=== PATIENT | female | born 1965 | race Caucasian/White ===

== ENCOUNTER 2022-02-08 13:02 | Emergency (ER) | payer SELFPAY ==
[2022-02-08] MEDS ORDERED: Morphine 4 MG/ML Syringe IVPUSH ONE (13:39)
[2022-02-08] MEDS ORDERED: Sodium Chloride 0.9% 10 ML Syringe FLUSH PRN (13:39)
[2022-02-08] MEDS ORDERED: Aspirin 81 MG Tab.Chew PO ONE (13:39)
[2022-02-08 14:13] LABS: ESTIMATED GFR 86 mL/min (>60)
[2022-02-08] MEDS ORDERED: Morphine 4 MG/ML Syringe IM ONE (14:32)
== END 2022-02-08 17:43 | disposition home or self-care (01) ==
LOC: JD.ED 13:02
DX: R07.89 Other chest pain (principal); R51.9 Headache, unspecified; Z88.0 Allergy status to penicillin
CPT/HCPCS: 36415; 70450; 71045; 80053; 84484; 85025; 85379; 93005; 96372; 99285; A9270; J2270; J3490

== ENCOUNTER 2023-01-23 09:25 | Day surgery (SDC) | payer BC ==
[~2023-01-23 09:25] MED LIST: Lactated Ringers 1,000 ML IV SCH; Sodium Chloride 0.9% 10 ML Syringe FLUSH PRN; Sodium Chloride 0.9% 10 ML Syringe FLUSH SCH
[2023-01-23] MEDS ORDERED: fentaNYL 100 MCG/2 ML SDV ONE (11:00)
[2023-01-23] MEDS ORDERED: Propofol 200 MG/20 ML SDV ONE (11:00)
[2023-01-23] MEDS ORDERED: Lidocaine 1% 6 ML ONE (11:00)
== END 2023-01-23 13:00 | disposition home or self-care (01) ==
LOC: JD.SDS 09:25
PROVIDERS: ATTEND Surgery
DX: Z12.11 Encounter for screening for malignant neoplasm of colon (principal); K29.50 Unspecified chronic gastritis without bleeding; D12.4 Benign neoplasm of descending colon; B96.81 Helicobacter pylori [H. pylori] as the cause of diseases classified elsewhere; K57.30 Diverticulosis of large intestine without perforation or abscess without bleeding; K64.8 Other hemorrhoids; I25.10 Atherosclerotic heart disease of native coronary artery without angina pectoris; F32.A Depression, unspecified; M79.7 Fibromyalgia; I10 Essential (primary) hypertension; E11.9 Type 2 diabetes mellitus without complications; G44.229 Chronic tension-type headache, not intractable; E78.00 Pure hypercholesterolemia, unspecified; M79.643 Pain in unspecified hand; M06.9 Rheumatoid arthritis, unspecified; K21.00 Gastro-esophageal reflux disease with esophagitis, without bleeding; Z88.0 Allergy status to penicillin; Z79.899 Other long term (current) drug therapy
CPT/HCPCS: 43239; 45385; J2704; J3010; J7120; 00813; J3490

== ENCOUNTER 2023-07-20 10:25 | Emergency (ER) | payer BC | END 2023-07-20 11:55 | disposition home or self-care (01) | LOC: JD.ED 10:25 | DX: M25.561 Pain in right knee (principal); I10 Essential (primary) hypertension; E78.00 Pure hypercholesterolemia, unspecified; E11.9 Type 2 diabetes mellitus without complications; I25.10 Atherosclerotic heart disease of native coronary artery without angina pectoris; K21.9 Gastro-esophageal reflux disease without esophagitis; Z88.0 Allergy status to penicillin; Z79.899 Other long term (current) drug therapy | CPT/HCPCS: 73562-26-RT; 73562-RT; 99283 ==

== ENCOUNTER 2023-09-26 13:26 | Emergency (ER) | payer BC ==
[2023-09-26] MEDS ORDERED: Nitroglycerin 0.4 MG Tab.SL SL PRN (14:11)
[2023-09-26] MEDS: Aspirin 81 MG Tab.Chew PO ONE (14:20)
[2023-09-26 15:07] LABS: BASOPHILS PERCENT AUTO 0.3 % (0.0-1.0); EOSINOPHILS ABSOLUTE AUTO 0.2 K/mm3 (0.0-0.4); EOSINOPHILS PERCENT AUTO 1.4 % (0.0-6.0); HEMATOCRIT 44.6 % (37.0-47.0); HEMOGLOBIN 15.1 gm/dl (12.0-16.0); IMMATURE GRAN ABSOLUTE AUTO 0.11 K/mm3 (0.00-0.05); IMMATURE GRAN PERCENT AUTO 1.1 % (0.0-0.4); LYMPHOCYTES ABSOLUTE AUTO 2.9 K/mm3 (1.0-4.8); LYMPHOCYTES PERCENT AUTO 27.7 % (24.0-44.0); MEAN CORPUSCULAR HEMOGLOBIN 29.7 pg (28.0-32.0); MEAN CORPUSCULAR HGB CONC 33.9 g/dl (32.0-36.0); MEAN CORPUSCULAR VOLUME 87.8 fl (83.0-99.0); MEAN PLATELET VOLUME 10.1 fl (9.4-12.3); MONOCYTES ABSOLUTE AUTO 0.7 K/mm3 (0.0-0.8); MONOCYTES PERCENT AUTO 6.9 % (0.0-8.0); NEUTROPHILS ABSOLUTE AUTO 6.5 K/mm3 (1.8-7.7); NEUTROPHILS PERCENT AUTO 62.6 % (41.0-71.0); PLATELET COUNT,PLT 196 K/mm3 (150-400); RED BLOOD CELL COUNT 5.08 M/mm3 (4.10-5.30); WHITE BLOOD CELL COUNT,WBC 10.43 K/mm3 (3.9-11.3)
[2023-09-26 15:34] LABS: A/G RATIO 0.8 (1-2); ALANINE AMINOTRANSFERASE,ALT 35 U/L (14-59); ALBUMIN 3.3 g/dl (3.4-5.0); ALKALINE PHOSPHATASE 87 U/L (46-116); ASPARTATE AMNIOTRANSFERASE,AST 28 U/L (15-37); BILIRUBIN TOTAL 0.5 mg/dL (0.2-1.0); BLOOD UREA NITROGEN,BUN 28 mg/dL (7-18); BUN/CREATININE RATIO 25.5 (14-18); CALCIUM 9.1 mg/dL (8.5-10.1); CARBON DIOXIDE,CO2 22 mEq/L (21-32); CHLORIDE,CL 99 mEq/L (98-107); CREATININE 1.1 mg/dL (0.55-1.02); EST CRCL DRUG DOSING (CG) 48.14 mL/min; ESTIMATED GFR 58 mL/min (>60); GLUCOSE RANDOM 120 mg/dL (70-99); PROTEIN TOTAL,TP 7.4 g/dl (6.4-8.2); SODIUM,NA 136 mEq/L (136-145)
[2023-09-26 15:35] LABS: TROPONIN I HIGH SENSITIVITY < 4 pg/mL (<=51)
[2023-09-26] MEDS: LORazepam 1 MG Tab PO ONE (16:38)
[2023-09-26] MEDS: Alum Hydrox/Mag Hydrox/Simeth 30 ML, Lidocaine 2% 15 ML PO ONE (16:39)
== END 2023-09-26 18:20 | disposition home or self-care (01) ==
LOC: JD.ED 13:26
DX: R07.89 Other chest pain (principal); F41.9 Anxiety disorder, unspecified; F43.9 Reaction to severe stress, unspecified; I10 Essential (primary) hypertension; E11.9 Type 2 diabetes mellitus without complications; I25.10 Atherosclerotic heart disease of native coronary artery without angina pectoris; Z90.710 Acquired absence of both cervix and uterus; Z88.0 Allergy status to penicillin; Z79.899 Other long term (current) drug therapy
CPT/HCPCS: 36415; 71045; 71045-26; 80053; 84484; 85025; 85379; 93005; 99285; A9270-GY